=== PATIENT | male | born 1995 | race Caucasian/White ===

== ENCOUNTER 2016-05-06 17:27 | Emergency (ER) | payer OTHER ==
[~2016-05-06] VITALS: Ht 175.3 cm; Wt 74.1 kg
[2016-05-06 17:30] VITALS: Ht 175.3 cm; Wt 74.1 kg
--- NOTE | 2016-05-06 18:53 | EMERGENCY ROOM VISIT NOTE ---
History Report prepared by Hetal: Angela Iyer Under the Supervision of: Dr. Steve Giron M.D. First contact with patient: 18:38 Chief Complaint: CHEST PAIN Stated Complaint: CHEST DISCOMFORT,ANXIETY,SWEATING,LIGHTHEADED Nursing Triage Summary: Chest aching and pressure x 5 days which worsened today; patient experienced lightheadedness, shortness of breath, axiety and diaphoresis with the chest pain today; referred to the ED by [facility]. History of Present Illness The patient is a 20 year old male who presents to the Emergency Room with complaints of waxing and waning chest pain for the past 5 days. He notes chest discomfort in the center of his chest that he describes as a dull ache. He thought that it was getting better, but today it worsened. Around 1pm the patient states "I had the symptoms of a heart attack." He started to become anxious with this, which exacerbated his symptoms. He rates his pain as a 5/10. He went to [facility] and was sent to the ED for further evaluation. The patient states that he had similar pain over the summer. He saw his PCP for these symptoms and had a negative cardiac work-up at that time and was diagnosed with a muscular injury secondary to weight lifting. The patient takes a pre-workout supplement. He denies any illicit drug use. Source of History: patient Onset: 5 days ago Position: chest Symptom Intensity: 5/10 Quality: ache, dull Timing: waxes/wanes Modifying Factors (Worsening): other (anxiety) Review of Systems See HPI for pertinent positives & negatives. A total of 10 systems reviewed and were otherwise negative. Past Medical & Surgical Medical Problems: (1) No significant medical problems Surgical Problems: (1) No significant past surgical history Family History Patient reports no known family medical history. Social History Smoking Status: Never Smoker Alcohol Use: occasionally Drug Use: none Marital Status: single Housing Status: lives with roommate Occupation Status: [employer] student Current/Historical Medications Scheduled Multivitamin (Multivitamin), 1 TAB PO DAILY Allergies Coded Allergies: No Known Allergies (Unverified , 01/24/15) Physical Exam Vital Signs Date Time Temp Pulse Resp B/P Pulse Ox O2 Delivery O2 Flow Rate FiO2 05/06/16 20:24 36.8 68 16 139/84 100 05/06/16 18:46 51 16 146/102 Room Air 05/06/16 18:45 75 05/06/16 18:44 100 Room Air 05/06/16 18:44 Room Air 05/06/16 18:44 Room Air 05/06/16 17:33 100 Room Air 05/06/16 17:30 36.8 65 18 142/92 100 Room Air Physical Exam GENERAL: Patient is a healthy-appearing well-nourished 20 year old male. HEAD: Normocephalic atraumatic EYES: Ocular movements intact pupils equal and react to light OROPHARYNX mucous membranes are moist no exudates present no erythema or edema present NECK: Supple no nuchal rigidity CHEST: Good equal expansion LUNGS: Clear and equal to auscultation CARDIAC: Normal S1 and S2 ABDOMEN: Soft nontender no guarding BACK: No CVA tenderness EXTREMITIES: No pain upon palpation normal muscle strength in all groups no clubbing cyanosis or edema NEURO: Patient is following commands is answering questions appropriately. Alert and oriented x3 Cranial Nerves 2-12 grossly intact Medical Decision & Procedures ER Provider Diagnostic Interpretation: Radiology results as stated below per my review and radiologist interpretation: CHEST ONE VIEW PORTABLE HISTORY: Atypical CHEST PAIN COMPARISON: None. FINDINGS: Cardiac silhouette appears borderline enlarged. No focal lung consolidations to suggest pneumonia. No evidence for pulmonary edema. No pleural effusions. No pneumothorax. There are low lung volumes. IMPRESSION: Borderline enlargement of the cardiac silhouette. This may be exaggerated by the low lung volumes and AP portable technique. Electronically signed by: Filiberto Donauhe M.D. 05/06/2016 7:39 PM Dictated Date/Time: 05/06/2016 7:37 PM Laboratory Results 05/06/16 19:20 Red Blood Count 4.79, Mean Corpuscular Volume 90.0, Mean Corpuscular Hemoglobin 32.6, Mean Corpuscular Hemoglobin Concent 36.2, Mean Platelet Volume 10.8, Neutrophils (%) (Auto) 59.7, Lymphocytes (%) (Auto) 29.9, Monocytes (%) (Auto) 8.5, Eosinophils (%) (Auto) 1.2, Basophils (%) (Auto) 0.5, Neutrophils # (Auto) 3.86, Lymphocytes # (Auto) 1.93, Monocytes # (Auto) 0.55, Eosinophils # (Auto) 0.08, Basophils # (Auto) 0.03 05/06/16 19:20 Test 05/06/16 19:20 White Blood Count 6.46 K/uL (4.8-10.8) Red Blood Count 4.79 M/uL (4.7-6.1) Hemoglobin 15.6 g/dL (14.0-18.0) Hematocrit 43.1 % (42-52) Mean Corpuscular Volume 90.0 fL (80-100) Mean Corpuscular Hemoglobin 32.6 pg (25-34) Mean Corpuscular Hemoglobin Concent 36.2 g/dl (32-36) Platelet Count 173 K/uL (130-400) Mean Platelet Volume 10.8 fL (7.4-10.4) Neutrophils (%) (Auto) 59.7 % Lymphocytes (%) (Auto) 29.9 % Monocytes (%) (Auto) 8.5 % Eosinophils (%) (Auto) 1.2 % Basophils (%) (Auto) 0.5 % Neutrophils # (Auto) 3.86 K/uL (1.4-6.5) Lymphocytes # (Auto) 1.93 K/uL (1.2-3.4) Monocytes # (Auto) 0.55 K/uL (0.11-0.59) Eosinophils # (Auto) 0.08 K/uL (0-0.5) Basophils # (Auto) 0.03 K/uL (0-0.2) RDW Standard Deviation 40.1 fL (36.4-46.3) RDW Coefficient of Variation 12.4 % (11.5-14.5) Immature Granulocyte % (Auto) 0.2 % Immature Granulocyte # (Auto) 0.01 K/uL (0.00-0.02) Anion Gap 9.0 mmol/L (3-11) Est Creatinine Clear Calc Drug Dose 115.9 ml/min Estimated GFR () 123.3 Estimated GFR (Non- 106.4 BUN/Creatinine Ratio 10.1 (10-20) Calcium Level 9.0 mg/dl (8.5-10.1) Total Bilirubin 1.1 mg/dl (0.2-1) Direct Bilirubin 0.2 mg/dl (0-0.2) Aspartate Amino Transf (AST/SGOT) 19 U/L (15-37) Alanine Aminotransferase (ALT/SGPT) 35 U/L (12-78) Alkaline Phosphatase 46 U/L (45-117) Total Creatine Kinase 87 U/L (39-308) Creatine Kinase MB < 0.5 ng/ml (0.5-3.6) Creatine Kinase MB Ratio (0-3.0) Troponin I < 0.015 ng/ml (0-0.045) Total Protein 7.4 gm/dl (6.4-8.2) Albumin 4.5 gm/dl (3.4-5.0) Lipase 94 U/L (73-393) Labs reviewed by ED physician. Medications Administered Medications (Trade) Dose Ordered Sig/Missy Route Start Time Stop Time Status Last Admin Dose Admin Sodium Chloride (Nss 1000ml) 1,000 ml @ 999 mls/hr Q1H1M STAT IV 05/06/16 18:55 05/06/16 19:55 DC 05/06/16 19:32 999 MLS/HR ECG Indication: chest pain Rate (beats per minute): 56 Rhythm: sinus bradycardia Findings: no acute ischemic change, no ectopy ED Course 184: Past medical records reviewed. The patient was evaluated in room B12A. A complete history and physical examination was performed. 1855: NSS 1000 ml @ 999 mls/hr IV 2003: I reassessed the patient at this time. He is feeling better and resting comfortably. I discussed the results and treatment plan with the patient. I answered all pertaining questions that he had. He expressed understanding and verbalized agreement. The patient will be discharged home. Medical Decision Differential diagnosis: Etiologies such as cardiac ischemia, aortic dissection, pulmonary embolism, pneumonia, pneumothorax, musculoskeletal, infections, pericarditis, myocarditis , esophageal rupture, gastrointestinal, as well as others were entertained. This 20-year-old male who presents emergency department complaining of chest pain. The patient is tender on palpation chest. In addition the patient injured this spot multiple times while lifting weights. For this reason I do feel that this is muscle skeletal pain that the patient is feeling. He does have a normal EKG as well as CK-MB and troponin. As the chest pain has been ongoing for the past 2 days and expect his troponin to be elevated if this were related to cardiac ischemia. I do believe that the patient can follow-up with cardiology as an outpatient. The patient was given normal saline bolus. Repeat examination revealed improvement patient's symptoms. Patient was in agreement with the treatment plan. Impression Primary Impression: Musculoskeletal chest pain Scribe Attestation The scribe's documentation has been prepared under my direction and personally reviewed by me in its entirety. I confirm that the note above accurately reflects all work, treatment, procedures, and medical decision making performed by me. Departure Information Dispostion Home / Self-Care Referrals No Doctor, Assigned (PCP) Patient Instructions My [facility]
[2016-05-06] MEDS ORDERED: SODIUM CHLORIDE 0.9% 1000ML 1,000 ML IV STA (18:55)
[2016-05-06] MEDS ORDERED: MULT-506 PO (19:04)
[2016-05-06 19:33] LABS: BASO % 0.5 %; BASO ABS # 0.03 K/uL (0-0.2); COMPLETE YES; EOS % 1.2 %; HEMATOCRIT 43.1 % (42-52); IG% 0.2 %; LYMPH % 29.9 %; LYMPH ABS # 1.93 K/uL (1.2-3.4); MEAN CORPUSCULAR HEMOGLOBIN 32.6 pg (25-34); MEAN CORPUSCULAR HGB CONC 36.2 g/dl (32-36); MEAN PLATELET VOLUME 10.8 fL (7.4-10.4); MONO % 8.5 %; NEUT % 59.7 %; PLATELET COUNT 173 K/uL (130-400); RED BLOOD COUNT 4.79 M/uL (4.7-6.1); WHITE BLOOD COUNT 6.46 K/uL (4.8-10.8)
--- NOTE | 2016-05-06 19:41 | DIAGNOSTIC IMAGING REPORT ---
CHEST ONE VIEW PORTABLE HISTORY: Atypical CHEST PAIN COMPARISON: None. FINDINGS: Cardiac silhouette appears borderline enlarged. No focal lung consolidations to suggest pneumonia. No evidence for pulmonary edema. No pleural effusions. No pneumothorax. There are low lung volumes. IMPRESSION: Borderline enlargement of the cardiac silhouette. This may be exaggerated by the low lung volumes and AP portable technique. Electronically signed by: Filiberto Donahue M.D. 05/06/2016 7:39 PM Dictated Date/Time: 05/06/2016 7:37 PM
[2016-05-06 19:53] LABS: ALT/SGPT 35 U/L (12-78); AST/SGOT 19 U/L (15-37); BLOOD UREA NITROGEN 10 mg/dl (7-18); BUN/CREATININE RATIO 10.1 (10-20); CARBON DIOXIDE 27 mmol/L (21-32); CHLORIDE 104 mmol/L (98-107); GLUCOSE 87 mg/dl (70-99); POTASSIUM 3.8 mmol/L (3.5-5.1); SODIUM 140 mmol/L (136-145)
[2016-05-06 19:58] LABS: ALKALINE PHOSPHATASE 46 U/L (45-117)
[2016-05-06 20:24] VITALS: BP 139/84; PULSE 68; TEMP 36.8; O2SAT 100
== END 2016-05-06 20:24 | disposition home or self-care (01) ==
LOC: C.EDB 17:27
DX: R07.89 Other chest pain (principal)